=== PATIENT | male | born 1940 | race Caucasian/White ===

== ENCOUNTER → 2017-06-24 | Day surgery (SDC) | payer MEDICARE, MEDICAID ==
--- NOTE | 2017-06-23 13:13 | Opthalmology H&P ---
Ophthalmology H&P H&P Chief Complaint: decreased vision in left eye HPI Vision Affects Ability to: read, focus/use eyes together, manage personal affairs HPI Narrative blurry vision Exam Visual Acuity: OD: 20/30 OS: 20/60 Tension: OD: 17 OS: 17 Eye Exam: normal OU: external exam, palpebral fissure-width, marginal reflex distance, levator function, corneas, anterior chambers, findings: lens - OD: ns OS: psc, fundus exam - RPE changes OS Assessment/Plan Diagnosis: (1) Cataract Treatment Plan: cataract extraction w/ lens implant Goals of Treatment: improvement of vision, enhance quality of life Attestation Attestation The risks and benefits of the surgery as well as alternative procedures were explained to the patient in detail. TED MULLER Jun 23, 2017 13:13
--- NOTE | 2017-06-23 13:14 | Pre-Procedure Note/Attestation ---
Pre-Procedure Note/Attestation Complete Prior to Procedure Planned Procedure: left Procedure Narrative: phaco with IOL, OS Indications for Procedure Pre-Operative Diagnosis: cataract, OS Attestation I attest that I discussed the nature of the procedure; its benefits; risks and complications; and alternatives (and the risks and benefits of such alternatives ), prior to the procedure, with the patient (or the patient's legal media sales representative). I attest that, if there was a reasonable possibility of needing a blood transfusion, the patient (or the patient's legal media sales representative) was given the [facility] standardized written summary, pursuant to the [place] Blood Safety Act ([place] Health and Safety Code # 1645, as amended). I attest that I re-evaluated the patient just prior to the surgery and that there has been no change in the patient's H&P, except as documented below: TED MULLER Jun 23, 2017 13:14
[~2017-06-24] VITALS: Ht 170.2 cm; Wt 92.1 kg
[2017-06-24] VITALS (10 sets, daily range): BP systolic 143–183; BP diastolic 71–89
[~2017-06-24] MED LIST: Akten 3.5% 1ml Btl LEFT EYE ONE; Atropine Inj 1mg/10ml Syr IV PRN; BSS 15ml BTL ONE; BSS 500ml btl ONE; COREG25 MG ORAL; Carbachol 0.01% Op Soln 1.5ml vial ONE; Dexamethasone 4mg/ml vial ONE; DiphenhydrAMINE 50mg/ml Inj IVP PRN; EPINEPHrine 1mg/1ml Amp ONE; LISINOPRIL5 MG ORAL; LR 1000ml 1,000 ML IVLG SCH; LR 1000ml ONE; Lidocaine 1% MPF 10mg/ml 5ml ONE; Maxitrol Opth Oint 3.5gm ONE; Midazolam 2mg/2ml Inj IVP PRN; Midazolam 2mg/2ml Inj ONE; NS Irrig 1000ml ONE; PROPIONATE NS; Povidone-Iodine 5% opth solution ONE; Pred Forte 1% Opth Susp 1ml ONE; Sodium Hyaluronate 14 mg/ml 0.85ml ONE; Sterile Water Irrig 1000ml IRRIG ONE; TAMSULOSIN HCL0.4 MG ORAL; TEMAZEPAM7.5 MG ORAL; TRAMADOL HCL100 M2 ORAL; TRINTELLIX PO; VENTOLIN HFA18 GM INH; acetaZOLAMIDE 500mg Inj ONE; fentaNYL 100 mcg/2 mL IV ONE; fentaNYL 100 mcg/2 mL IV PRN
[2017-06-24] MEDS: Tropicamide 1% Opth Soln LEFT EYE SCH ×3 (10:07→10:27)
[2017-06-24] MEDS: Cyclopentolate 1% Opth Sol LEFT EYE SCH ×3 (10:07→10:27)
[2017-06-24] MEDS: Tobramycin Op Soln 0.3% LEFT EYE SCH ×3 (10:07→10:27)
[2017-06-24] MEDS: Ketorolac Tromethamine Opth Soln LEFT EYE SCH ×3 (10:07→10:27)
[2017-06-24] MEDS: Phenylephrine 10% Opth Soln 5ml LEFT EYE SCH ×3 (10:07→10:27)
--- NOTE | 2017-06-28 13:54 | Brief Operative Note ---
Immediate Post Operative Note Operative Note Chief Complaint: blurry vision Pre-op Diagnosis: cataract, OS Procedure: phaco with IOL, OS Post-op Diagnosis: Pseudophakia Post-op Diagnosis: same as pre-op Findings: consistent w/pre-op dx studies Surgeon: Kaykay Anesthesiologist: Zoran Wolf Anesthesia: MAC Specimen: none Complications: none Condition: stable Fluids: LR Estimated Blood Loss: none Drains: none Implant(s) used?: Yes TDE MULLER Jun 28, 2017 13:54
--- NOTE | 2017-06-28 13:56 | Operative Note - PDOC ---
Operative Note Operative Note Date of Operation/Procedure: Jun 24, 2017 Chief Complaint: blurry vision Pre-op Diagnosis: cataract, OS Procedure: phaco with IOL, OS Post-op Diagnosis: Pseudophakia Post-op Diagnosis: same as pre-op Operative Findings: consistent w/pre-op dx studies Surgeon: Kaykay Anesthesiologist: Zoran Wolf Anesthesia: MAC Specimen: none Complications: none Condition: stable Fluids: LR Estimated Blood Loss: none Drains: none Implant(s) used?: Yes Indications for Procedure cataract Description of Procedure This patient has been complaining visually significant cataract in the affected eye with the best corrected visual acuity under moderate glare conditions worse. The patient complains of difficulties with glare in performing activities of daily living and wants to manage personal affairs with comfort and accuracy and see well enough to move with safety at home and outdoors. The risks, benefits and alternatives of the procedure were discussed with the patient in the office prior to scheduling surgery. All questions from the patient were answered after the surgical procedure was explained in detail. The risks of the procedure as explained to the patient include, but are not limited to, pain, infection, bleeding, loss of vision, retinal detachment, need for further surgery, loss of lens nucleus, double vision, etc. Alternative procedures were discussed which include, to do nothing or seek a second opinion. Informed consent for this procedure was obtained from the patient. The patient was referred to a primary care physician for a cardiopulmonary clearance prior to surgery, after proper evaluation was done patient was properly scheduled for outpatient surgery. The patient was brought to the operating room where the anesthesiologist established I.V. lines and cardiac monitoring leads. Mild intravenous sedation was administered. Using a solution containing 0.75% Marcaine and 2% lidocaine with Wydase, a peribulbar block was administered to the eye. The patient was then prepared with a 5% solution of povidone-iodine to the conjunctival fornix and lashes, and a 10% solution of povidone-iodine to the lids and periorbital skin. The patient was then draped in the usual sterile fashion. A lid speculum was then placed in the operative eye. A keratome blade was then used to create a biplanar incision into the anterior chamber. Viscoelastics was then instilled into the anterior chamber. A capsulorrhexis was then fashioned with an utrata forceps and hydrodissection and hydro delineation of the the lens. Paracentesis incision was made at 3 o' clock with sharp blade. The phacoemulsification unit, after being properly adjusted and tested, was then used to emulsify the nucleus. Residual cortical material was aspirated with the irrigation and aspiration unit. Healon was then instilled into the anterior chamber. The corneal wound was then enlarged to the size of the optic with the al keratome blade. The intraocular lens was then inspected for right power and size and thought to be satisfactory. Then the lens was gently placed in the capsular bag. Positioning within the capsular bag was confirmed by direct visualization. Optic centration was accomplished with a Sinskey hook. Viscoelastics was removed from the anterior chamber using the irrigation and aspiration unit. The corneal wound was then tested for leaks and none were found. The lid speculum were then removed. Sponge and needle counts were correct. An eye patch and shield were placed over the operative eye. The patient was taken to the recovery room in stable condition. There were no complications. The patient tolerated the procedure well. The patient was then transferred to the ambulatory surgery unit in stable and satisfactory condition , was given detailed written instructions and asked to follow up in the office the next day. Dictated & Transcribed: JHP Felicita PRESLEY JAMES Jun 28, 2017 13:56
--- NOTE | 2017-06-30 11:05 | Anethesia Preoperative Eval ---
Anesthesia Pre-op PMH/ROS General Date of Evaluation: Jun 24, 2017 Time of Evaluation: 12:08 Anesthesiologist: kylee ASA Score: ASA 3 Mallampati Score Class I : Soft palate, uvula, fauces, pillars visible Class II: Soft palate, uvula, fauces visible Class III: Soft palate, base of uvula visible Class IV: Only hard plate visible Mallampati Classification: Class II Surgeon: keven Diagnosis: cataract left eye Surgical Procedure: cataract extraction left eye Anesthesia History: none Family History: no anesthesia problems Allergies: Coded Allergies: No Known Allergies (Unverified , 06/23/17) Medications: see eMAR Past Medical History Cardiovascular: Reports: HTN Pulmonary: Reports: COPD Gastrointestinal/Genitourinary: Reports: other - bph Neurologic/Psychiatric: Reports: depression/anxiety HEENT: Reports: cataract (L) Musculoskeletal/Integumentary: Reports: OA Other: obesity Anesthesia Pre-op Phys. Exam Physician Exam Last Vital Signs Date Time Temp Pulse Resp B/P (MAP) Pulse Ox O2 Delivery O2 Flow Rate FiO2 06/24/17 14:21 63 18 143/77 97 Room Air 06/24/17 14:19 97.5 Constitutional: NAD Neurologic: CN 2-12 intact Cardiovascular: RRR Respiratory: CTA Gastrointestinal: S/NT/ND Airway Exam Mallampati Score: Class II MO: full Neck: supple TMD: 2fb ROM: full Anesthesia Pre-op A/P Risk Assessment & Plan Assessment: asa3 Plan: mac Status Change Before Surgery: No Pre-Antibiotics Drug: ALLI Kelly Jun 30, 2017 11:05
--- NOTE | 2017-06-30 11:08 | Immediate Post-Op Evaluation ---
Immediate Post-Op Evalulation Immediate Post-Op Evalulation Procedure: cataract extraction Date of Evaluation: Jun 24, 2017 Time of Evaluation: 13:25 IV Fluids: 550ml lr Blood Products: none Estimated Blood Loss: negligible Blood Pressure Systolic: 183 Blood Pressure Diastolic: 89 Pulse Rate: 71 Respiratory Rate: 18 O2 Sat by Pulse Oximetry: 100 Temperature (Fahrenheit): 97.1 Pain Score (1-10): 0 Nausea: No Vomiting: No Complications none Patient Status: awake, reacts, patent Hydration Status: adequate Drug: ALLI Kelly Jun 30, 2017 11:08
[2017-06-30 11:10] VITALS: BP 158/76
--- NOTE | 2017-06-30 11:10 | 48 Hour Post Anesthesia Eval ---
Post Anesthesia Evaluation Procedure: cataract extraction w/ iol left Date of Evaluation: Jun 30, 2017 Time of Evaluation: 13:27 Blood Pressure Systolic: 158 0: 76 Pulse Rate: 71 Respiratory Rate: 18 Temperature (Fahrenheit): 97.1 O2 Sat by Pulse Oximetry: 100 Airway: patent Nausea: No Vomiting: No Pain Intensity: 0 Hydration Status: adequate Cardiopulmonary Status: stable Mental Status/LOC: patient returned to baseline Post-Anesthesia Complications: none Follow-up care needed: N/A ALLI YADAV Jun 30, 2017 11:10
== END | disposition home or self-care (01) ==
LOC: SUR 06:56
DX: H26.9 Unspecified cataract (principal); Z79.82 Long term (current) use of aspirin; Z87.891 Personal history of nicotine dependence; I10 Essential (primary) hypertension; M19.90 Unspecified osteoarthritis, unspecified site; F32.9 Major depressive disorder, single episode, unspecified; G47.00 Insomnia, unspecified
CPT/HCPCS: 66984; J0171; J1100; J1120; J2250; J3010; J3370; J7120; V2632; 94003; 94150

== ENCOUNTER 2018-03-20 06:59 | Day surgery (SDC) | payer MEDICARE, MEDICAID ==
--- NOTE | 2018-03-16 14:44 | Pre-Procedure Note/Attestation ---
Pre-Procedure Note/Attestation Complete Prior to Procedure Planned Procedure: right Procedure Narrative: PHACO WITH IOL Indications for Procedure Pre-Operative Diagnosis: CATARACT Attestation I attest that I discussed the nature of the procedure; its benefits; risks and complications; and alternatives (and the risks and benefits of such alternatives ), prior to the procedure, with the patient (or the patient's legal dealer compliance representative). I attest that, if there was a reasonable possibility of needing a blood transfusion, the patient (or the patient's legal dealer compliance representative) was given the [facility] standardized written summary, pursuant to the [place] Blood Safety Act ([place] Health and Safety Code # 1645, as amended). I attest that I re-evaluated the patient just prior to the surgery and that there has been no change in the patient's H&P, except as documented below: TED MULLER Mar 16, 2018 14:44
--- NOTE | 2018-03-17 11:05 | Opthalmology H&P ---
Ophthalmology H&P H&P Chief Complaint: decreased vision in right eye HPI Vision Affects Ability to: read, focus/use eyes together, manage personal affairs HPI Narrative blurry vision Exam Visual Acuity: OD: 20/80 OS; 20/25 Tension: OD: 14 OS: 12 Eye Exam: normal OU: external exam, palpebral fissure-width, marginal reflex distance, levator function, corneas, anterior chambers, fundus exam; findings: lens - OD: ns OS: IOL Assessment/Plan Diagnosis: (1) Nuclear age-related cataract, right eye Treatment Plan: cataract extraction w/ lens implant Goals of Treatment: improvement of vision, enhance quality of life Attestation Attestation The risks and benefits of the surgery as well as alternative procedures were explained to the patient in detail. TED MULLER Mar 17, 2018 11:05
[2018-03-20] VITALS (8 sets, daily range): BP systolic 119–127; BP diastolic 57–72
[~2018-03-20] VITALS: Ht 170.2 cm; Wt 93.9 kg
[~2018-03-20 06:59] MED LIST changes: -Akten 3.5% 1ml Btl LEFT EYE ONE; -Atropine Inj 1mg/10ml Syr IV PRN; -BSS 15ml BTL ONE; -BSS 500ml btl ONE; -Carbachol 0.01% Op Soln 1.5ml vial ONE; -Dexamethasone 4mg/ml vial ONE; -DiphenhydrAMINE 50mg/ml Inj IVP PRN; -EPINEPHrine 1mg/1ml Amp ONE; +HYDROCHLOROTHIA25 MG ORAL; -LR 1000ml 1,000 ML IVLG SCH; -LR 1000ml ONE; -Lidocaine 1% MPF 10mg/ml 5ml ONE; -Maxitrol Opth Oint 3.5gm ONE; -Midazolam 2mg/2ml Inj IVP PRN; -Midazolam 2mg/2ml Inj ONE; -NS Irrig 1000ml ONE; -Povidone-Iodine 5% opth solution ONE; -Pred Forte 1% Opth Susp 1ml ONE; -Sodium Hyaluronate 14 mg/ml 0.85ml ONE; -Sterile Water Irrig 1000ml IRRIG ONE; -acetaZOLAMIDE 500mg Inj ONE; -fentaNYL 100 mcg/2 mL IV ONE; -fentaNYL 100 mcg/2 mL IV PRN
[2018-03-20] MEDS ORDERED: Diclofenac Sod 0.1% Op Soln RIGHT EYE SCH (07:00)
[2018-03-20] MEDS ORDERED: Tetracaine 0.5% Opth 4ml Soln RIGHT EYE ONE (07:00)
[2018-03-20] MEDS ORDERED: Pred Forte 1% Opth Susp 1ml ONE (07:00)
[2018-03-20] MEDS ORDERED: Dexamethasone 4mg/ml vial ONE ×2 (07:00→10:18)
[2018-03-20] MEDS ORDERED: Proparacaine 0.5% Opth Soln 15ml RIGHT EYE ONE (07:00)
[2018-03-20] MEDS ORDERED: Akten 3.5% 1ml Btl RIGHT EYE ONE (07:00)
[2018-03-20] MEDS ORDERED: Maxitrol Opth Oint 3.5gm ONE (07:00)
[2018-03-20] MEDS: Cyclopentolate 1% Opth Sol 2ml RIGHT EYE SCH ×3 (08:31→09:02)
[2018-03-20] MEDS: Tropicamide 1% Opth 15ml Soln RIGHT EYE SCH ×3 (08:31→09:02)
[2018-03-20] MEDS: Tobramycin Op Soln 0.3% 5ml RIGHT EYE SCH ×3 (08:32→09:02)
[2018-03-20] MEDS: Phenylephrine 10% Opth Soln 5ml RIGHT EYE SCH ×3 (08:32→09:02)
[2018-03-20] MEDS ORDERED: ASPIR 8181 MG ORAL (08:49)
[2018-03-20] MEDS ORDERED: TRINTELLIX PO (08:49)
[2018-03-20] MEDS ORDERED: MELOXICAM15 MG PO (08:49)
[2018-03-20] MEDS ORDERED: AMLODIPINE BESYL5 MG ORAL (08:49)
[2018-03-20] MEDS ORDERED: HYDROCHLOROTHIA25 MG ORAL (08:49)
[2018-03-20] MEDS ORDERED: BSS 500ml btl ONE (10:18)
[2018-03-20] MEDS ORDERED: EPINEPHrine 1mg/1ml Amp ONE (10:18)
[2018-03-20] MEDS ORDERED: BSS 15ml BTL ONE ×2 (10:18→10:33)
[2018-03-20] MEDS ORDERED: LR 1000ml ONE (10:30)
[2018-03-20] MEDS ORDERED: Propofol 200mg/20ml IV ONE (10:30)
[2018-03-20] MEDS ORDERED: Povidone-Iodine 5% opth solution ONE (10:33)
[2018-03-20] MEDS ORDERED: Pilocarpine 2% Opth 15ml Soln ONE (10:34)
[2018-03-20] MEDS ORDERED: fentaNYL 100 mcg/2 mL IV PRN ×2 (10:45→12:00)
[2018-03-20] MEDS ORDERED: LR 1000ml 1,000 ML IVLG SCH ×2 (10:45→12:00)
[2018-03-20] MEDS ORDERED: Sodium Hyaluronate 10 mg/ml 0.85ml ONE (10:47)
--- NOTE | 2018-03-20 10:49 | Anethesia Preoperative Eval ---
Anesthesia Pre-op PMH/ROS General Date of Evaluation: Mar 20, 2018 Time of Evaluation: 10:34 Anesthesiologist: Ludmila ASA Score: ASA 3 Mallampati Score Class I : Soft palate, uvula, fauces, pillars visible Class II: Soft palate, uvula, fauces visible Class III: Soft palate, base of uvula visible Class IV: Only hard plate visible Mallampati Classification: Class II Surgeon: Kaykay Diagnosis: Cataract right eye Surgical Procedure: Extraction of cataract with IOL right eye Family History: no anesthesia problems Allergies: Coded Allergies: No Known Allergies (Unverified , 06/23/17) Medications: see eMAR Past Medical History Cardiovascular: Reports: HTN; Denies: CAD, [place], valve dz, arrhythmia, other Pulmonary: Reports: other - Bronchitis; Denies: asthma, COPD, CARLOS Gastrointestinal/Genitourinary: Denies: GERD, CRI, ESRD, other Neurologic/Psychiatric: Reports: depression/anxiety; Denies: dementia, CVA, TIA, other Endocrine: Denies: DM, hypothyroidism, steroids, other HEENT: Reports: cataract (L), cataract (R), glaucoma Hematology/Immune: Denies: anemia, DVT, bleeding disorder, other Musculoskeletal/Integumentary: Reports: OA; Denies: RA, DJD, DDD, edema, other PMH Narrative: HTN, glaucoma, depression, OA, bronchitis PSxH Narrative: Cataract extraction left eye Anesthesia Pre-op Phys. Exam Physician Exam Last Vital Signs Date Time Temp Pulse Resp B/P (MAP) Pulse Ox O2 Delivery O2 Flow Rate FiO2 03/20/18 08:52 97.2 56 20 123/72 97 Room Air 97.2 Constitutional: NAD Neurologic: CN 2-12 intact Cardiovascular: RRR, no M/R/G Respiratory: CTA Gastrointestinal: S/NT/ND Airway Exam Mallampati Score: Class II MO: full ROM: full Teeth: intact Anesthesia Pre-op A/P Risk Assessment & Plan Assessment: Class 3 patient for cataract extraction right eye Plan: MAC Status Change Before Surgery: No Pre-Antibiotics Drug: None Bear Keys MD Mar 20, 2018 10:49
[2018-03-20] MEDS ORDERED: Alfentanil 2ml Inj ONE (10:58)
--- NOTE | 2018-03-20 11:06 | Immediate Post-Op Evaluation ---
Immediate Post-Op Evalulation Immediate Post-Op Evalulation Procedure: Cataract extraction with IOL right eyer Date of Evaluation: Mar 20, 2018 Time of Evaluation: 11:20 IV Fluids: 500 Blood Pressure Systolic: 120 Blood Pressure Diastolic: 62 Pulse Rate: 62 Respiratory Rate: 17 O2 Sat by Pulse Oximetry: 96 Temperature (Fahrenheit): 98.4 Pain Score (1-10): 0 Nausea: No Vomiting: No Complications No complication Patient Status: awake, patent, none Hydration Status: adequate Drug: None Bear Keys MD Mar 20, 2018 11:06
--- NOTE | 2018-03-20 11:20 | 48 Hour Post Anesthesia Eval ---
Post Anesthesia Evaluation Procedure: Cataract extraction with IOL right eyer Date of Evaluation: Mar 20, 2018 Time of Evaluation: 11:45 Blood Pressure Systolic: 121 0: 66 Pulse Rate: 65 Respiratory Rate: 18 O2 Sat by Pulse Oximetry: 95 Airway: patent Nausea: No Vomiting: No Pain Intensity: 0 Hydration Status: adequate Cardiopulmonary Status: Stable Mental Status/LOC: patient returned to baseline Follow-up Care/Observations: As per surgery Post-Anesthesia Complications: No anesthetic complication Follow-up care needed: N/A Bear Keys MD Mar 20, 2018 11:20
--- NOTE | 2018-03-21 13:10 | Brief Operative Note ---
Immediate Post Operative Note Operative Note Chief Complaint: blurry vision Pre-op Diagnosis: CATARACT, OD Procedure: phaco with IOL Post-op Diagnosis: Pseudophakia Post-op Diagnosis: same as pre-op Findings: consistent w/pre-op dx studies Surgeon: Kaykay Anesthesiologist: Ludmila Anesthesia: MAC Specimen: none Complications: none Condition: stable Fluids: LR Estimated Blood Loss: none Drains: none Implant(s) used?: Yes TED MULLER Mar 21, 2018 13:10
--- NOTE | 2018-03-21 13:28 | Operative Note - PDOC ---
Operative Note Operative Note Date of Operation/Procedure: Mar 20, 2018 Chief Complaint: blurry vision Pre-op Diagnosis: CATARACT, OD Procedure: phaco with IOL Post-op Diagnosis: Pseudophakia Post-op Diagnosis: same as pre-op Operative Findings: consistent w/pre-op dx studies Surgeon: Kaykay Anesthesiologist: Ludmila Anesthesia: MAC Specimen: none Complications: none Condition: stable Fluids: LR Estimated Blood Loss: none Drains: none Implant(s) used?: Yes Indications for Procedure cataract Description of Procedure This patient has been complaining visually significant cataract in the affected eye with the best corrected visual acuity under moderate glare conditions worse. The patient complains of difficulties with glare in performing activities of daily living and wants to manage personal affairs with comfort and accuracy and see well enough to move with safety at home and outdoors. The risks, benefits and alternatives of the procedure were discussed with the patient in the office prior to scheduling surgery. All questions from the patient were answered after the surgical procedure was explained in detail. The risks of the procedure as explained to the patient include, but are not limited to, pain, infection, bleeding, loss of vision, retinal detachment, need for further surgery, loss of lens nucleus, double vision, etc. Alternative procedures were discussed which include, to do nothing or seek a second opinion. Informed consent for this procedure was obtained from the patient. The patient was referred to a primary care physician for a cardiopulmonary clearance prior to surgery, after proper evaluation was done patient was properly scheduled for outpatient surgery. The patient was brought to the operating room where the anesthesiologist established I.V. lines and cardiac monitoring leads. Mild intravenous sedation was administered. The patient was then prepared with a 5% solution of povidone -iodine to the conjunctival fornix and lashes, and a 5% solution of povidone- iodine to the lids and periorbital skin. The patient was then draped in the usual sterile fashion. A lid speculum was then placed in the operative eye. A keratome blade was then used to create a biplanar incision into the anterior chamber. Viscoelastics was then instilled into the anterior chamber. A capsulorrhexis was then fashioned with an utrata forceps followed by hydrodissection and hydro delineation of the lens nucleus with G 27 cannula. Paracentesis incision was made at 3 o'clock with sharp blade. The phacoemulsification unit, after being properly adjusted and tested, was then used to emulsify the nucleus followed by aspiration and irrigation of residual cortical material. Healon was then instilled into the anterior chamber. The corneal wound was then enlarged to the size of the optic with the al keratome blade. The intraocular lens was then inspected for right power and size and thought to be satisfactory. Then the lens was gently placed in the capsular bag. Positioning within the capsular bag was confirmed by direct visualization. Optic centration was accomplished with a Sinskey hook. Viscoelastics was removed from the anterior chamber using the irrigation and aspiration unit. The corneal wound was then tested for leaks and none were found. The lid speculum were then removed. Sponge and needle counts were correct. An eye patch and shield were placed over the operative eye. The patient was taken to the recovery room in stable condition. There were no complications. The patient tolerated the procedure well. The patient was then transferred to the ambulatory surgery unit in stable and satisfactory condition , was given detailed written instructions and asked to follow up in the office the next day. TED MULLER Mar 21, 2018 13:28
== END 2018-03-20 13:05 | disposition home or self-care (01) ==
LOC: SUR 06:59
DX: H25.11 Age-related nuclear cataract, right eye (principal); I10 Essential (primary) hypertension; F32.9 Major depressive disorder, single episode, unspecified; F41.9 Anxiety disorder, unspecified; M19.90 Unspecified osteoarthritis, unspecified site
CPT/HCPCS: 66984; J0171; J1100; J2704; J3370; J3490; J7120; V2632; 94003; 94150